=== PATIENT | female | born 1995 | race Caucasian/White ===

== ENCOUNTER 2019-01-10 12:12 | Outpatient (CLI) | payer MEDICAID ==
[2019-01-10 13:43] LABS: #Eosinphils 0.2 thou/uL (0.0-0.7); #Lymphocytes 1.7 thou/uL (1.20-3.40); #Monocytes 0.3 thou/uL (0.11-0.59); #Neutrophils 7.6 thou/uL (1.40-6.50); %Basophils 0.4 % (0.0-1.0); %Lymphocytes 17.3 % (21.0-51.0); %Monocytes 2.8 % (0.0-10.0); %Neutrophils 77.5 % (42.0-75.0); Hemoglobin 12.1 g/dL (12.0-16.0); Mean Corpuscular HGB CONC 32.8 g/dL (32.0-36.0); Mean Corpuscular Hemoglobin 29.1 pg (27.0-31.0); Mean Platelet Volume 6.1 fL (7.4-10.4); Platelet Count 283 thou/uL (130-400); Red Blood Cell (RBC) Count 4.16 mill/uL (4.20-5.40); White Blood Cell (WBC) Count 9.8 thou/uL (4.8-10.8)
[2019-01-10 22:01] LABS: Syphilis Antibody Nonreactive (Nonreactive); Syphilis Antibody Index 0.04 S/CO (<1.00 Non-Reactive)
[2019-01-11 00:01] LABS: HIV (1/2) Antibody/Antigen Non-Reactive (NonReactive); HIV 1/2 INDEX 0.19 S/CO (<1.00)
== END 2019-01-10 12:13 | disposition home or self-care (01) ==
LOC: MADLABBHPM 12:12
PROVIDERS: ATTEND Family Medicine
DX: Z34.83 Encounter for supervision of other normal pregnancy, third trimester (principal)
CPT/HCPCS: 82950; 85025; 86780; 87389

== ENCOUNTER 2019-04-20 13:34 | Emergency (ER) | payer OTHER ==
[2019-04-20 14:22] LABS: Bilirubin Negative (Negative); Blood, Urine Moderate (Negative); Clarity Clear (Clear); Glucose, Urine (Dipstick) Negative (Negative); Leukocyte Trace (Negative); Nitrite Negative (Negative); Protein, Urine (Dipstick) Negative (Neg-Trace); Urobilinogen 0.2 mg/dL (Less than 2)
[2019-04-20 14:35] LABS: Bacteria/HPF Rare-Few HPF (None Seen); RBC/HPF 0-3 HPF (0-3)
--- NOTE | 2019-04-20 14:38 | CT ---
CT BRAIN WITHOUT IV CONTRAST: HISTORY: Headache. FINDINGS: No focal mass or midline shift. No intraaxial or extraaxial hemorrhage. Sinuses and mastoids are mary r of acute process. IMPRESSION: 1. No significant acute intracranial process. 2. No mass or bleed. POS: [facility]
== END 2019-04-20 14:55 | disposition home or self-care (01) ==
LOC: MADERS 13:34
DX: R51 Headache (principal); F32.9 Major depressive disorder, single episode, unspecified
CPT/HCPCS: 70450; 81003; 81015